=== PATIENT | female | born 1985 | race Caucasian/White ===

== ENCOUNTER → 2017-09-12 | Outpatient (CLI) | payer OTHER ==
[~2017-09-12] MED LIST: Bactrim Ds Tab1 EACH PO; CHOL10002; DIALYVITE50000 UNIT PO; DOCU100 PO; HYDSUL200 PO; IBUP600 PO; IBUPROFEN; LAVAP17G PO; Maxalt10 MG PO; Naprosyn500 MG PO; OXYCODONE; PRED5 PO; PRENZ; PROM25 PO; RXPROM25 PO; TOPI25 PO; TRAM50 PO; [UNRECOGNIZED DRUG - REMARK]
[2017-09-12 14:13] LABS: Specimen Source CERVIX
[2017-09-13 09:00] LABS: Candida species (DNA Probe) Negative (NEGATIVE); G. vaginalis (DNA Probe) Negative (NEGATIVE); T. vaginalis (DNA Probe) Negative (NEGATIVE)
[2017-09-13 13:16] LABS: Source Cervix
== END ==
LOC: LAB 12:28 → LAB SHORT 12:28
PROVIDERS: Advanced Practice Midwife
DX: N89.8 Other specified noninflammatory disorders of vagina (principal)
CPT/HCPCS: 87070; 87205; 87480; 87491; 87510; 87591; 87660